=== PATIENT | female | born 1955 | race Caucasian/White ===

== ENCOUNTER 2017-03-04 18:22 | Inpatient (IN) | payer SELFPAY ==
--- NOTE | ~2017-03-04 | DS ---
Discharge Summary [facility] [address] [place]. [address] NAME: CAITLIN LATHAM : 55 STATUS : DIS IN PAT#: [id number] AGE: 62 ADM/REG DATE : 03/04/17 MR#: [id number] REPORT SERV DATE: 03/08/17 DICTATED BY: JAIR DIEGO DATE: 03/07/17 REPORT STATUS : Draft TRANSCRIBED BY: KAMALJIT DATE: 03/07/17 ADMISSION DATE: 03/04/2017 DISCHARGE DATE: 03/07/2017 DISCHARGE DIAGNOSES: 1. Gastric ulcer. 2. Hematemesis secondary to the above. 3. Esophagitis and gastritis. 4. Chest pain, present on admission, status post negative stress test. This was likely due to the gastric ulcers. 5. Hypertensive urgency, present on admission, the rest of the patient's vitals have been stable during the hospitalization. 6. Anxiety disorder. 7. Elevated thyroid stimulating hormone with normal free T4. CONSULTS: Dr. Coates of Gastroenterology. PROCEDURES: EGD performed on 03/06/2017, that showed grade B reflux esophagitis as well as gastritis and a gastric ulcer with clean base. HOSPITAL COURSE: This is a 62-year-old lady, who was initially admitted to the hospital with complaints of chest pain and hypertensive urgency. For details, please refer to H and P by Dr. Gar. In summary, the patient was admitted and was worked up for potential acute coronary syndrome. The patient was ruled out of acute coronary syndrome with negative sets of cardiac enzymes, and the patient also had a stress test that was negative. During the hospital stay, the patient then had an episode of hematemesis and thus GI was consulted. The patient had an upper endoscopy performed with the results as mentioned above and throughout the entire hospital stay, the patient remained hemodynamically stable with normal hemoglobin counts. The patient is now being discharged home with close outpatient followup instructions. The patient's chest pain has resolved, and the patient's blood pressure has normalized. DISPOSITION: Home. MEDICATIONS: Prilosec 20 mg p.o. daily for three months. FOLLOWUP: 1. Please follow up with PCP in the next one to two weeks. 2. Please follow up with Gastroenterology in the next two weeks. Total of 25 minutes spent in coordinating this patient's discharge today. KELLIE/MODL Discharge Summary [address] [place]. [address] NAME: CAITLIN LATHAM : 55 STATUS : DIS IN PAT#: [id number] AGE: 62 ADM/REG DATE : 03/04/17 MR#: [id number] REPORT SERV DATE: 03/08/17 DICTATED BY: JAIR DIEGO DATE: 03/07/17 REPORT STATUS : Draft TRANSCRIBED BY: MODCathie DATE: 03/07/17 Jair Diego MD / [id number] CC: Jair Diego MD
--- NOTE | ~2017-03-04 | CN ---
Consultation Report [facility] [place] [address] [facility] [place]. [address] NAME: CAITLIN LATHAM : 55 STATUS : ADM Candy PAT#: [id number] AGE: 62 ADM/REG DATE : 03/04/17 MR#: [id number] REPORT SERV DATE: 03/06/17 DICTATED BY: LANE DOWD DATE: 03/05/17 REPORT STATUS : Draft TRANSCRIBED BY: MODL DATE: 03/05/17 CONSULTATION NOTE DATE OF CONSULTATION: 03/05/2017 REASON FOR CONSULTATION: The patient admitted with history of chest pain, associated with nausea, vomiting, and also history of hematemesis. The patient describes pain as left-sided chest pain with significant family history of coronary artery disease, so she was evaluated for cardiac event which according to the chart and the patient was negative and that is the reason they consulted me for further evaluation to rule out any ulcer disease. The pain was started off and on two weeks ago. She has been having significant headaches also, and she takes ibuprofen every 4 hours, 4 or 5 times a day for last few months. She also had significant uncontrolled blood pressures in 190s and above in systolic. PAST MEDICAL HISTORY: Significant for hypertension, hypothyroidism, history of breast cancer status post lumpectomy and radiation 30 treatment in 2008. PAST SURGICAL HISTORY: Lumpectomy, also hysterectomy, hemorrhoidal surgery, bilateral inguinal hernia repair. SOCIAL HISTORY: Significant for no smoking, no alcohol use. No illicit drug use except smokes marijuana a few times a month. FAMILY HISTORY: Significant for coronary artery disease in 50s and 60s. REVIEW OF SYSTEMS: Noted from the chart. The patient has frequent history of headaches. Also, has history of constipation and diarrhea back and forth. Denies any history of hematochezia or melena. Her last colonoscopy was in [address] Damon, reported normal. Denies any urinary symptoms. All other systems reviewed as per history. PHYSICAL EXAMINATION: VITAL SIGNS: Blood pressure 131/63, temperature 97.5, pulse 89, respiration 18 per minute. GENERAL: This is an obese female, in no acute distress. Lying comfortably in the bed. HEENT: No icterus. Normal conjunctivae. NECK: Supple. No JVD. No thyromegaly or lymph node. CHEST: Bilateral fair air flow, normal excursions. HEART: S1, S2. Regular rate and rhythm. No murmur. ABDOMEN: Soft, obese, bowel sounds present. No hepatosplenomegaly. The left and right lower quadrant, mild tenderness present and epigastric moderate tenderness present. No guarding, no rebound tenderness. EXTREMITIES: No clubbing, cyanosis, or edema. NEUROLOGICAL EXAM: Alert and oriented, moving all extremities. Consultation Report [facility] [address] [place]. [address] NAME: CAITLIN LATHAM : 55 STATUS : ADM Candy PAT#: [id number] AGE: 62 ADM/REG DATE : 03/04/17 MR#: [id number] REPORT SERV DATE: 03/06/17 DICTATED BY: LANE DOWD DATE: 03/05/17 REPORT STATUS : Draft TRANSCRIBED BY: KAMALJIT DATE: 03/05/17 PSYCH: Normal affect. LAB: Sodium 143, potassium 4.1, BUN 16, creatinine 0.8. Liver enzymes normal. Albumin 3.8, white count 9.1, hemoglobin 13.1, hematocrit 39.0, platelet 247,000. Chest x-ray; mild elevation of the right diaphragm with atelectasis in the right medial lung base. No prior exam. CT of the head shows negative head of the CT. ASSESSMENT: The patient admitted with hypertension crisis, some chest pain, history of coronary artery disease in the family. Cardiac evaluation was negative. Also had a history of nausea, vomiting, epigastric pain, and hematemesis. Also has significant use of NSAIDs for last few months four to five times a day for headaches. PLAN: To evaluate this history with upper endoscopy to rule out any ulcer disease and advise further after the procedure. Also, we will give some milk of magnesia tonight and placement assistant to clean her out. That should help her also. GABRIELA/KAMALJIT Lane Dowd M.D. / [id number] CC: Crystal Gar MD
--- NOTE | ~2017-03-04 | EGD ---
EGD REPORT [facility] [address] [place]. [address] NAME: JACKIE CALDERON : 55 STATUS : ADM Candy PAT#: [id number] AGE: 62 ADM/REG DATE : 03/04/17 MR#: [id number] REPORT SERV DATE: 03/06/17 DICTATED BY: DUC DOWD DATE: 03/06/17 REPORT STATUS : Draft TRANSCRIBED BY: [facility] DATE: 03/06/17 Endoscopy Center Patient Name: Jackie Calderon Date of : 1955 Attending MD: DUC DOWD MD Procedure Date No Time: 03/06/2017 Procedure: Upper GI endoscopy Indications: Upper abdominal pain, Hematemesis Medicines: Monitored Anesthesia Care Complications: No immediate complications. Procedure: Pre-Anesthesia Assessment: - ASA Grade Assessment: III - A patient with severe systemic disease. After obtaining informed consent, the endoscope was passed under direct vision. Throughout the procedure, the patient's blood pressure, pulse, and oxygen saturations were monitored continuously. The GIF [id number] was introduced through the mouth, and advanced to the third part of duodenum. The upper GI endoscopy was accomplished without difficulty. The patient tolerated the procedure well. Findings: The nasopharynx was normal. LA Grade B (one or more mucosal breaks greater than 5 mm, not extending between the tops of two mucosal folds) esophagitis with no bleeding was found in the lower third of the esophagus. Biopsies were taken with a cold forceps for histology. Verification of patient identification for the specimen was done. Estimated blood loss was minimal. Diffuse mild inflammation characterized by congestion (edema) and erythema was found in the entire examined stomach. Biopsies were taken with a cold forceps for histology. Verification of patient identification for the specimen was done. Estimated blood loss was minimal. One non-bleeding linear gastric ulcer with no stigmata of bleeding was found in the gastric antrum. The lesion was 5 mm in largest dimension. The examined duodenum was normal. Biopsies were taken with a cold forceps for histology. Verification of patient identification for the specimen was done. Estimated blood loss was minimal. Impression: - Normal nasopharynx. - LA Grade B reflux esophagitis. Rule out Graham's esophagus. Biopsied. - Gastritis. Biopsied. - Gastric ulcer with clean base. EGD REPORT [address] [address] NAME: JACKIE CALDERON : 55 STATUS : ADM Candy PAT#: [id number] AGE: 62 ADM/REG DATE : 03/04/17 MR#: [id number] REPORT SERV DATE: 03/06/17 DICTATED BY: DUC DOWD DATE: 03/06/17 REPORT STATUS : Draft TRANSCRIBED BY: [employer] DATE: 03/06/17 - Normal examined duodenum. Biopsied. Recommendation: - Follow an antireflux regimen daily. - Use Prilosec (omeprazole) 20 mg PO daily for 3 months. - Discontinue aspirin and NSAIDs indefinitely. - Return to GI clinic in 2 weeks. Procedure Code(s): --- Professional --- 50222, Esophagogastroduodenoscopy, flexible, transoral; with biopsy, single or multiple Diagnosis Code(s): --- Professional --- K21.0, Gastro-esophageal reflux disease with esophagitis K29.70, Gastritis, unspecified, without bleeding K25.9, Gastric ulcer, unspecified as acute or chronic, without hemorrhage or perforation R10.10, Upper abdominal pain, unspecified K92.0, Hematemesis CPT copyright 2013 [employer]. All rights reserved. The codes documented in this report are preliminary and upon executive receptionist review may be revised to meet current compliance requirements. DUC DOWD MD 03/06/2017 2:04 PM This report has been signed electronically. Number of Addenda: 0 Note Initiated On: 03/06/2017 1:34 PM Scope Withdrawal Time 0 hours 0 minutes 0 seconds [address] [place] [id number]
--- NOTE | ~2017-03-04 | HP ---
History And Physical [facility] [id number] [place]. [address] NAME: CAITLIN LATHAM : 55 STATUS : ADM Candy PAT#: [id number] AGE: 62 ADM/REG DATE : 03/04/17 MR#: [id number] REPORT SERV DATE: 03/05/17 DICTATED BY: CRYSTAL GAR DATE: 03/04/17 REPORT STATUS : Draft TRANSCRIBED BY: KAMALJIT DATE: 03/04/17 DATE OF ADMISSION: 03/04/2017 HISTORY OF PRESENT ILLNESS: This is a 62-year-old female with medical history of hypertension and hypothyroidism who presented to the emergency room of [facility] with complaints of chest pain. The patient reports that about two weeks ago, while she was sitting watching TV, she noticed sudden onset of left-sided chest pain that lasted for few minutes and subsequently went away. However, she has noticed that the chest pain has been coming on more frequently on exertion. She has chest pain while just walking within the house and occasionally at rest. She also reports that there is associated shortness of breath on exertion and has noticed some mild lower extremity swelling. She reported that about two years ago, she stopped going to her primary care physician because she tested positive in her urine for marijuana, and her PCP wrote a letter not to follow up with her and her PCP fired her. Since then, she has not had any PCP follow up. She has not been taking any blood medications for her blood pressure and thyroid medication. Prior to presentation in the hospital, she noticed that her blood pressure has remained persistently high in the 190s. She has also noticed some associated headaches with occasional dizziness and presyncope. She denies any aphasia. She denies any upper extremity or lower extremity weakness. Given the worsening chest pain, headache, and dizziness, she decided to go to the emergency room at [facility] where she was evaluated. Troponin was noted to be negative at [facility] as well as blood pressure was in the 190s. She was given aspirin, nitroglycerin paste as well as Lovenox subcu injection. EKG x2 essentially shows no acute ST-T wave changes. The patient was transferred from [facility] Emergency Room to [facility] per the request. Per the patient, her family has extensive history of cardiac disease. Her mother also was diagnosed with coronary artery disease, recently she underwent a left heart catheterization. The patient reported that she was pleased with her mother's experience and preferred to be transferred to [facility] for further evaluation. FAMILY HISTORY: Mother diagnosed with coronary artery disease when she was in her 60s. Her father was also diagnosed with coronary artery disease at the age of 62. A brother of coronary artery disease at the age of 56. SOCIAL HISTORY: The patient smokes marijuana, but denies smoking cigarettes, drinking alcohol, or illicit drug use. PAST MEDICAL HISTORY: 1. Hypertension, the patient is currently not on any antihypertensives for the last two years. 2. Hypothyroidism, the patient is not on Synthroid for the last two years. 3. History of breast cancer, status post lumpectomy and radiation therapy in 2008. Per the patient, no evidence or report of recurrence of disease. PAST SURGICAL HISTORY: 1. History of lumpectomy in 2008. History And Physical [address] [address] NAME: CAITLIN LATHAM : 55 STATUS : ADM Candy PAT#: [id number] AGE: 62 ADM/REG DATE : 03/04/17 MR#: [id number] REPORT SERV DATE: 03/05/17 DICTATED BY: CRYSTAL GAR DATE: 03/04/17 REPORT STATUS : Draft TRANSCRIBED BY: KAMALJIT DATE: 03/04/17 2. Hysterectomy in 1997. 3. Hemorrhoid surgery. 4. Bilateral inguinal hernia repair. REVIEW OF SYSTEMS: A 12-point review of system conducted essentially negative. Positive findings as per HPI. PHYSICAL EXAMINATION: VITAL SIGNS: Blood pressure 136/83, pulse rate 70s beats per minute, temperature 97.9, saturating 94% on room air. GENERAL: Not in any acute distress. HEENT: Extraocular muscles intact. Pupils equal, round, and reactive. NECK: Supple. CHEST: Nontender. Equal expansion. CARDIOVASCULAR: Regular rate and rhythm. S1, S2. No rubs. No gallops. LUNGS: Clear to auscultation bilaterally. ABDOMEN: Bowel sounds normoactive. Soft, nontender. No palpably enlarged organomegaly. EXTREMITIES: Lower extremities trace of pedal edema in the ankle. LABORATORY DATA: 1. At [facility], hematology: WBC 7.2, hemoglobin 14.1, hematocrit 41.6, MCV 87.5, platelet 220. 2. Chemistry: Sodium 141, potassium 3.9, chloride 104, bicarb 23, calcium 9.5, glucose 145, creatinine 0.82, BUN 15. 3. Albumin 4.3, protein 7.1, ALT 17, AST 12, bilirubin 0.2. Troponin less than 0.3. BNP 166. 4. EKG, normal sinus rhythm. Ventricular rate 72 beats per minute. QTc is 417. 5. Chest x-ray, no acute cardiopulmonary process noted on chest x-ray. ASSESSMENT AND PLAN: 1. Chest pain. Given the patient's presentation of left-sided chest pain with extensive family history of coronary artery disease, there is suspicion that this may be unstable angina. At this time, the patient's chest pain has significantly improved with nitro patch and with beta aliyah. At the time of my evaluation, the patient had no further episode of chest pain. At this time, we will trend troponin x3. We will monitor serial EKG. We will also obtain an echocardiogram and schedule a nuclear imaging stress test in the morning. I will continue the patient on aspirin, beta aliyah, Lipitor, and nitro patch. 2. Hypertensive urgency. The patient's blood pressure on presentation to the emergency room was in the 190s, which has subsequently improved with p.o. blood pressure medications. At this point, we will continue beta-blockers as ordered. We will continue nitroglycerin patch and continue to monitor patient's blood pressure closely. 3. Vertigo. The patient reported some vertigo. We will obtain a CT of the head without contrast. We will have meclizine q.8 hours p.r.n. 4. Hypothyroidism. We will restart the patient on dose of Synthroid 50 mcg p.o. daily. 5. Anxiety disorder. The patient is currently not on any medication for anxiety. The patient reported that she was weaned off Xanax about a year ago. We will continue to History And Physical [address] [address] NAME: CAITLIN LATHAM : 55 STATUS : ADM Candy PAT#: [id number] AGE: 62 ADM/REG DATE : 03/04/17 MR#: [id number] REPORT SERV DATE: 03/05/17 DICTATED BY: CRYSTAL GAR DATE: 03/04/17 REPORT STATUS : Draft TRANSCRIBED BY: KAMALJIT DATE: 03/04/17 monitor the patient closely. 6. Admission status, observation. 7. Admission disposition, Cardiac tele. 8. DVT prophylaxis. Subcu heparin. 9. Consultation. I will order cardiology consultation at this time. We will continue to monitor serial troponins. If the patient's chest pain returned and remained persistent or noted EKG changes or troponin elevated, we initiate Cardiology consult. This patient will be admitted under the Hospitalist Service. This patient will be followed by my colleague in the morning by Dr. Hollis. ABRAHAM/KAMALJIT Crystal Gar MD / [id number] CC: Crystal Gar MD
[2017-03-04] MEDS ORDERED: T PO (19:00)
[2017-03-04 21:00] LABS: BASOPHILS 0.4 %; BASOPHILS ABSOLUTE 0.03 10/3/uL (0.0-0.16); EOSINOPHILS 2.6 %; EOSINOPHILS ABSOLUTE 0.18 10/3/uL (0.0-0.53); HEMATOCRIT 40.8 % (36.0-48.0); HEMOGLOBIN 13.6 g/dL (12.0-16.0); IMMATURE GRANULOCYTES 0.3 %; IMMATURE GRANULOCYTES ABSOLUTE 0.02 10/3/uL (0.0-0.11); LYMPHOCYTES 36.9 %; LYMPHOCYTES ABSOLUTE 2.53 10/3/uL (0.67-4.30); MEAN CORPUS HGB CONC 33.3 g/dL (32.0-36.0); MEAN CORPUSCULAR HEMOGLOB 29.9 pg (26.0-34.0); MEAN CORPUSCULAR VOLUME 89.7 fL (80-100); MEAN PLATELET VOLUME 10.2 fL (9.2-13.0); MONOCYTES 5.7 %; MONOCYTES ABSOLUTE 0.39 10/3/uL (0.21-1.20); NEUTROPHILS 54.1 %; NEUTROPHILS ABSOLUTE 3.71 10/3/uL (2.02-8.40); PLATELET COUNT 230 10/3/uL (150-400); RED CELL COUNT 4.55 10/6/uL (4.0-5.6); WHITE BLOOD CELLS 6.9 10/3/uL (4.5-10.5)
[2017-03-04 21:01] LABS: MANUAL DIFF NO %
[2017-03-04 21:10] LABS: D-DIMER QUANTITATIVE 0.46 ug/mLFEU (< 0.50)
[2017-03-04 21:22] LABS: B NATRIURETIC PEPTIDE (BNP) 27.4 PG/ML (< 100.0)
[2017-03-04 21:25] LABS: A/G RATIO 1.1 (0.7-1.9); ALBUMIN 3.7 G/DL (3.5-5.0); ALKALINE PHOSPHATASE 82 U/L (45-117); BUN (BLOOD UREA NITROGEN) 13 MG/DL (6-23); CALCIUM, SERUM 9.1 MG/DL (8.5-10.4); CHLORIDE, SERUM 105 MMOL/L (96-112); CO2 (CARBON DIOXIDE) 31 MMOL/L (24-34); CREATININE 0.73 MG/DL (0.55-1.02); FREE T4 1.04 NG/DL (0.76-1.46); GFR AFRICAN AMERICAN 102 ML/MIN (>=60); GFR NON AFRICAN AMERICAN 88 ML/MIN (>=60); GLOBULIN 3.4 G/DL (2.5-4.1); GLUCOSE, SERUM 82 MG/DL (60-99); POTASSIUM, SERUM 3.9 MMOL/L (3.5-5.3); SGOT(AST) 13 U/L (5-40); SGPT(ALT) 23 U/L (5-65); SODIUM, SERUM 140 MMOL/L (135-148); TOTAL BILIRUBIN 0.3 MG/DL (0-1.2); TOTAL PROTEIN 7.1 G/DL (6.0-8.5); TROPONIN I <0.02 NG/ML (<0.05)
[2017-03-04 21:41] LABS: GLYCOHEMOGLOBIN (HbA1c) 5.8 % (4.7-6.1)
[2017-03-05 02:12] LABS: BASOPHILS 0.3 %; BASOPHILS ABSOLUTE 0.03 10/3/uL (0.0-0.16); EOSINOPHILS 1.5 %; EOSINOPHILS ABSOLUTE 0.14 10/3/uL (0.0-0.53); HEMATOCRIT 40.8 % (36.0-48.0); HEMOGLOBIN 13.5 g/dL (12.0-16.0); IMMATURE GRANULOCYTES 0.3 %; IMMATURE GRANULOCYTES ABSOLUTE 0.03 10/3/uL (0.0-0.11); LYMPHOCYTES 22.3 %; LYMPHOCYTES ABSOLUTE 2.02 10/3/uL (0.67-4.30); MEAN CORPUS HGB CONC 33.1 g/dL (32.0-36.0); MEAN CORPUSCULAR HEMOGLOB 29.8 pg (26.0-34.0); MEAN CORPUSCULAR VOLUME 90.1 fL (80-100); MEAN PLATELET VOLUME 9.8 fL (9.2-13.0); MONOCYTES 5.5 %; NEUTROPHILS 70.1 %; NEUTROPHILS ABSOLUTE 6.35 10/3/uL (2.02-8.40); PLATELET COUNT 247 10/3/uL (150-400); RBC DISTRIBUTION WIDTH 12.8 % (12.0-16.0); RED CELL COUNT 4.53 10/6/uL (4.0-5.6); WHITE BLOOD CELLS 9.1 10/3/uL (4.5-10.5)
[2017-03-05 02:19] LABS: MANUAL DIFF NO %
[2017-03-05 02:26] LABS: ALBUMIN 3.8 G/DL (3.5-5.0); BUN (BLOOD UREA NITROGEN) 16 MG/DL (6-23); CALCIUM, SERUM 8.7 MG/DL (8.5-10.4); CHLORIDE, SERUM 106 MMOL/L (96-112); CO2 (CARBON DIOXIDE) 29 MMOL/L (24-34); CREATININE 0.86 MG/DL (0.55-1.02); GFR AFRICAN AMERICAN 84 ML/MIN (>=60); GFR NON AFRICAN AMERICAN 72 ML/MIN (>=60); PHOSPHORUS, SERUM 3.8 MG/DL (2.5-4.5); POTASSIUM, SERUM 4.1 MMOL/L (3.5-5.3); SODIUM, SERUM 143 MMOL/L (135-148)
[2017-03-05 02:29] LABS: CPK 78 U/L (0-200); GLUCOSE, SERUM 155 MG/DL (60-99); TROPONIN I <0.02 NG/ML (<0.05)
[2017-03-05 02:30] LABS: CK-MB 1.5 NG/ML
[2017-03-05 08:09] LABS: HEMATOCRIT 41.3 % (36.0-48.0); HEMOGLOBIN 13.3 g/dL (12.0-16.0)
[2017-03-05 14:57] LABS: TROPONIN I <0.02 NG/ML (<0.05)
[2017-03-05 14:58] LABS: CK-MB 1.1 NG/ML; CPK 7 U/L (0-200)
[2017-03-05 15:22] LABS: HEMATOCRIT 38.9 % (36.0-48.0); HEMOGLOBIN 12.8 g/dL (12.0-16.0)
[2017-03-05 16:21] LABS: CHOL/HDL RATIO(NOT ORDER) 4.1 (0-5); CHOLESTEROL 160 MG/DL (< 200); HDL CHOLESTEROL 39 MG/DL (> 49); LDL CHOLESTEROL 84 MG/DL (< 130); NON-HDL CHOLESTEROL 121 MG/DL (< 160); TRIGLYCERIDE 187 MG/DL (< 150)
[2017-03-05 20:38] LABS: HEMOGLOBIN 13.1 g/dL (12.0-16.0)
[2017-03-06 02:13] LABS: BASOPHILS 0.4 %; BASOPHILS ABSOLUTE 0.03 10/3/uL (0.0-0.16); EOSINOPHILS ABSOLUTE 0.16 10/3/uL (0.0-0.53); HEMATOCRIT 39.4 % (36.0-48.0); IMMATURE GRANULOCYTES 0.3 %; IMMATURE GRANULOCYTES ABSOLUTE 0.02 10/3/uL (0.0-0.11); LYMPHOCYTES 28.6 %; LYMPHOCYTES ABSOLUTE 2.26 10/3/uL (0.67-4.30); MEAN CORPUSCULAR HEMOGLOB 30.1 pg (26.0-34.0); MEAN CORPUSCULAR VOLUME 91.2 fL (80-100); MONOCYTES 6.5 %; MONOCYTES ABSOLUTE 0.51 10/3/uL (0.21-1.20); NEUTROPHILS 62.2 %; NEUTROPHILS ABSOLUTE 4.91 10/3/uL (2.02-8.40); PLATELET COUNT 231 10/3/uL (150-400); RBC DISTRIBUTION WIDTH 12.8 % (12.0-16.0); RED CELL COUNT 4.32 10/6/uL (4.0-5.6); WHITE BLOOD CELLS 7.9 10/3/uL (4.5-10.5)
[2017-03-06 02:15] LABS: MANUAL DIFF NO %
[2017-03-07 05:53] LABS: BASOPHILS 0.3 %; BASOPHILS ABSOLUTE 0.02 10/3/uL (0.0-0.16); EOSINOPHILS 1.7 %; EOSINOPHILS ABSOLUTE 0.13 10/3/uL (0.0-0.53); HEMATOCRIT 39.3 % (36.0-48.0); IMMATURE GRANULOCYTES 0.1 %; IMMATURE GRANULOCYTES ABSOLUTE 0.01 10/3/uL (0.0-0.11); LYMPHOCYTES 23.6 %; LYMPHOCYTES ABSOLUTE 1.84 10/3/uL (0.67-4.30); MEAN CORPUS HGB CONC 33.1 g/dL (32.0-36.0); MEAN CORPUSCULAR HEMOGLOB 30.2 pg (26.0-34.0); MEAN CORPUSCULAR VOLUME 91.4 fL (80-100); MONOCYTES 5.8 %; MONOCYTES ABSOLUTE 0.45 10/3/uL (0.21-1.20); NEUTROPHILS 68.5 %; NEUTROPHILS ABSOLUTE 5.34 10/3/uL (2.02-8.40); PLATELET COUNT 211 10/3/uL (150-400); RBC DISTRIBUTION WIDTH 12.8 % (12.0-16.0); WHITE BLOOD CELLS 7.8 10/3/uL (4.5-10.5)
[2017-03-07 06:02] LABS: MANUAL DIFF NO %
[2017-03-07] MEDS ORDERED: PRILO PO (09:36)
== END 2017-03-07 11:19 | disposition home or self-care (01) | DRG 379 ==
LOC: 6NO 18:22
PROVIDERS: Hospitalist; Internal Medicine; Internal Medicine Gastroenterology; Nurse Practitioner Family
PROC: 0DB68ZX Excision of Stomach, Via Natural or Artificial Opening Endoscopic, Diagnostic (ICD-10-PCS; 2017-03-06)
PROC: 0DB38ZX Excision of Lower Esophagus, Via Natural or Artificial Opening Endoscopic, Diagnostic (ICD-10-PCS; principal; 2017-03-06 13:48)
DX: K25.4 Chronic or unspecified gastric ulcer with hemorrhage (principal); E03.9 Hypothyroidism, unspecified; K29.70 Gastritis, unspecified, without bleeding; I16.0 Hypertensive urgency; F41.9 Anxiety disorder, unspecified; K21.0 Gastro-esophageal reflux disease with esophagitis; K59.00 Constipation, unspecified; R51 Headache; I25.10 Atherosclerotic heart disease of native coronary artery without angina pectoris; T39.395A Adverse effect of other nonsteroidal anti-inflammatory drugs [NSAID], initial encounter; Z82.49 Family history of ischemic heart disease and other diseases of the circulatory system; Z90.710 Acquired absence of both cervix and uterus
CPT/HCPCS: 70450; 71010; 78452; 80053; 80061; 80069; 82550; 82553; 83036; 83735; 83880; 84439; 84443; 84484; 85014; 85018; 85025; 85379; 88305; 88342; 93005; 93017; 93306; A9270-GY; A9502; C9113; J0153; J0280; J2405